=== PATIENT | female | born 1975 | race Caucasian/White ===

== ENCOUNTER 2023-06-16 12:22 | Emergency (ER) | payer OTHER, SELFPAY ==
--- NOTE | ~2023-06-16 | CT_ITS ---
EXAMINATION: CT brain wo con INDICATION: Left facial droop COMPARISON: None TECHNIQUE: Standard unenhanced head CT. The dose-length product (DLP) was 681.00 mGy-cm. The mA was a djusted according to patient size. Iterative reconstruction technique was employed. FINDINGS: No intracranial hemorrhage, acute infarction, or abnormal mass lesion. The ventricles are n ormal. No abnormal mass effect or midline shift. The ghosh-white matter differentiation is normal. The basal cisterns are patent. The orbits are normal. The paranasal sinuses, mastoids and calvarium are normal. IMPRESSION: 1. No acute intracranial abnormality. Reviewed, dictated and finalized at location F.
[2023-06-16 12:36] VITALS: BP 138/90; PULSE 79; RESP 20; TEMP 36.6; O2SAT 100
--- NOTE | 2023-06-16 14:09 | ED.NEUROSD ---
HPI - Neuro Symptoms/Deficit General Chief Complaint: Neuro Symptoms/Deficit Stated Complaint: sent by pcp for chronic L sided face droop/etc Time Seen by Provider: 06/16/23 14:09 Source: patient Mode of arrival: ambulatory Limitations: no limitations History of Present Illness HPI Narrative: Patient is a 48-year-old female who presents the ED with report of a worsening left-sided facial droop. Patient reports she has had a chronic left sided facial droop for the last several weeks. She has history of cervical spinal stenosis and has been seeing Dr. Jesus Peng with neurosurgery in [facility]. She states over the last 4-5 days her facial droop has been more prominent. She states her family members have noticed it more when she is talking. She states at times she drools out of the left side of her mouth or feels strange speaking of the left side of her mouth. She denies any other new symptoms. She has been having issues with intermittent weakness in her bilateral hands and feet, worse on the left side, for the last several weeks. Again has been seeing Neurosurgery for this. Denies acute change in this. She has been having dizzy spells for last 4-5 months, denies change in this. Denies slurred speech, confusion, vision changes, new headaches, syncope, facial numbness. She states she was told to come to the ED for a full stroke work-up before she can receive a CT scan of her cervical spine with her neurosurgeon. Related Data Allergies Allergy/AdvReac Type Severity Reaction Status Date / Time No Known Allergies Allergy Verified 06/16/23 12:44 Review of Systems Review of Systems: CONSTITUTIONAL: Denies fever, chills, or sweats. ENT: Denies vision changes CARDIOVASCULAR: Denies chest pain. RESPIRATORY: Denies dyspnea. GASTROINTESTINAL: Denies abdominal pain, nausea, vomiting. MUSCULOSKELETAL: Denies back pain, extremity pain, myalgia. NEUROLOGIC: See HPI. All systems reviewed & are unremarkable except as noted in HPI and below Exam Narrative: GENERAL: Well appearing, obese with BMI of 31.6, non-toxic, in no acute distress. HEAD: Normocephalic, atraumatic. EYES: PERRL/EOMI, conjunctivae clear bilaterally. No nystagmus. NECK: Supple. No meningeal signs. RESPIRATORY: Airway patent, respirations nonlabored. Clear to auscultation bilaterally, no rales, rhonchi, wheezing. CARDIOVASCULAR: Regular rate and rhythm without murmurs, rubs, or gallops. Peripheral pulses 2+ and equal bilaterally. MUSCULOSKELETAL: Moves all extremities. No gross deformities. SKIN: Warm, dry, normal color. No rashes. NEURO: A&O X3. Speech clear. No aphasia, dysarthria. Follows commands. CN II-XII intact. No appreciable facial droop. Sensation grossly intact. Steady gait. No ataxic movements. Strength 5/5 in upper and lower extremities bilaterally. No pronator drift. Equal lead java programmer strength bilaterally. PSYCHIATRIC: Appropriate mood and affect. Normal interaction. Course Vital Signs Vital signs: Vital Signs Temperature 97.9 F 06/16/23 12:36 Pulse Rate 79 06/16/23 12:36 Respiratory Rate 20 06/16/23 12:36 Blood Pressure 138/90 06/16/23 12:36 Pulse Oximetry 100 06/16/23 12:36 Oxygen Delivery Room Air 06/16/23 12:36 Temperature 97.9 F 06/16/23 12:36 Pulse Rate 79 06/16/23 12:36 Respiratory Rate 20 06/16/23 12:36 Blood Pressure 138/90 06/16/23 12:36 Pulse Oximetry 100 06/16/23 14:48 Oxygen Delivery Room Air 06/16/23 12:36 MDM - Neuro Symptoms/Deficit MDM Narrative Medical decision making narrative: Patient presented to ED reportedly upon the request of her neurosurgeon for full stroke work-up. Patient does not feel she needs to be here. Reportedly has several week history of left-sided facial droop which has been worsening over the last 4-5 days. Upon my evaluation, patient is neurologically intact. I do not appreciate any facial droop on exam. There are no other focal deficits on neurol
[2023-06-16 14:48] VITALS: O2SAT 100
== END 2023-06-16 15:58 | disposition home or self-care (01) ==
PROVIDERS: Emergency Provider Physician Assistant
DX: R29.810 Facial weakness (principal); M48.02 Spinal stenosis, cervical region
CPT/HCPCS: 70450; 99284